=== PATIENT | male | born 1970 | race Caucasian/White ===

== ENCOUNTER 2018-10-01 04:01 | Emergency (ER) | payer OTHER ==
[~2018-10-01] VITALS: Ht 180.3 cm; Wt 93.7 kg
[2018-10-01 04:05] VITALS: Ht 180.3 cm; Wt 93.7 kg
[2018-10-01] MEDS ORDERED: HYDROCODONE/APAP (5/325) TAB PO ONE (05:00)
[2018-10-01] MEDS ORDERED: MED4DP PO (06:13)
[2018-10-01] MEDS ORDERED: NAPR-985 PO (06:13)
--- NOTE | 2018-10-01 06:29 | ERD ---
ER Documentation Chief Complaint Chief Complaint R WRIST PAIN X'S 3 DAYS HPI This is a 48-year-old [id number] male who presents to the ED complaining of sharp right wrist pain for the past 3 days. Patient states his pain woke him up from sleep today. He states pain shoots from his wrist down to his fingers. Denies any trauma. He states he works at [employer] and does a lot of heavy lifting however he has not been at work for the past 3 days. He has been icing the area and wearing a volar wrist splint with no relief of his symptoms. ROS All systems reviewed and are negative except as per history of present illness. Medications Home Meds Active Scripts Methylprednisolone* (Medrol* DOSE PACK) 4 Mg/Dose-Pack Tab.ds.pk, 4 MG PO . DIRECTED, #1 PACKET Prov:LJ BRAY PA-C 10/01/18 Naproxen* (Naprosyn*) 500 Mg Tablet, 500 MG PO BID PRN for PAIN AND/OR INFLAMMATION, #30 TAB Prov:LJ BRAY PA-C 10/01/18 Allergies Allergies: Coded Allergies: No Known Allergy (Unverified , 10/01/18) PMhx/Soc Medical and Surgical Hx: pt denies Medical Hx, pt denies Surgical Hx History of Surgery: No Anesthesia Reaction: No Hx Neurological Disorder: No Hx Respiratory Disorders: No Hx Cardiac Disorders: No Hx Psychiatric Problems: No Hx Miscellaneous Medical Probl: No Hx Alcohol Use: Yes (occasionally) Hx Substance Use: Yes (marijuana) Hx Tobacco Use: No Smoking Status: Never smoker Physical Exam Vitals Vital Signs Date Temp Pulse Resp B/P (MAP) Pulse Ox O2 O2 Flow FiO2 Time Delivery Rate 10/01/18 99.3 86 18 138/86 97 06:30 (103) 10/01/18 98.0 87 18 144/95 98 04:05 (111) Physical Exam Const: No acute distress Head: Atraumatic Eyes: Normal Conjunctiva ENT: Normal External Ears, Nose and Mouth. Upper Extremity -right Skin: No laceration, or evidence of external trauma Compartments: Soft Motor: + Pain with ROM of the wrist and fingers. Sensation: + Tinel's. Intact shoulder/pinky/middle finger/thumb web space Bones: Nontender wrist/hand Snuffbox: Nontender Pulses/Perfusion: 2+ radial, Capillary refill < 2 seconds Neur: Awake and alert Psych: Normal Mood and Affect Results 24 hrs Current Medications Medications Dose Sig/T[place]ka Start Time Status Last (Trade) Ordered Route PRN Stop Time Admin Dose Reason Admin 1 tab ONCE ONCE 10/01/18 DC 10/01/18 Acetaminophen PO 05:00 05:01 / 10/01/18 05:01 Hydrocodone Bitart ([place] (5/325)) Procedures/[facility] LABS & DIAGNOSTIC IMAGING: ROCEDURE: Right wrist series CLINICAL INDICATION: Pain TECHNIQUE: AP, lateral, oblique and navicular views were obtained of the right wrist COMPARISON: None FINDINGS: No evidence of acute fractures or dislocations. The bony mineralization is normal. No focal bony blastic or lytic lesions. Soft tissues are unremarkable. No foreign bodies. IMPRESSION: No evidence of acute fracture dislocation or erosions or foreign bodies. ED COURSE: The patient was given [place] The medication was well tolerated and the patient had market improvement in symptoms. The patient remained stable throughout ED course. MEDICAL DECISION MAKIN-year-old male presents with shooting right wrist pain. X-ray was negative for any acute fracture or dislocation. History and physical consistent with an overuse injury, likely carpal tunnel syndrome. No evidence of compartment syndrome, neurovascular injury, open joint, open fracture, tendon laceration, or foreign body. He was discharged home with anti-inflammatories and a steroid Dosepak. He already has a Velcro splint which I recommend he continue to wear. He was told to follow-up with his regular care doctor whom he is scheduled to see in the next few days. Strict return precautions were discussed. PRESCRIPTIONS: Medrol Dosepak, naproxen SPECIALIST FOLLOW UP RECOMMENDED: None Patient has been advised to follow up with primary care in 1-2 days. Departure Diagnosis: Primary Impression: Carpal tunnel syndrome Laterality: right Qualified Codes: G56.01 - Carpal tunnel syndrome, right upper limb Condition: Stable Patient Instructions: Carpal Tunnel Syndrome Prevention Tips, Carpal Tunnel Repair Referrals: [facility] 7 a.m.- 11 p.m. Every Day of the Week NO APPOINTMENT OR AUTHORIZATION NEEDED Additional Instructions: Call your primary care doctor TOMORROW for an appointment during the next 2-4 days and bring all the information and medications prescribed. If the symptoms get worse and your provider is unavailable, return to the Emergency Department immediately. LJ BRAY PA-C Oct 01, 2018 06:29
[2018-10-01 06:30] VITALS: BP 138/86; PULSE 86; RESP 18
== END 2018-10-01 06:31 | disposition home or self-care (01) ==
LOC: FTE 04:01
DX: G56.01 Carpal tunnel syndrome, right upper limb (principal)
CPT/HCPCS: 99283